=== PATIENT | male | born 1960 | race Caucasian/White ===

== ENCOUNTER 2016-12-07 22:07 | Emergency (ER) | payer BC, OTHER ==
[~2016-12-07] VITALS: Ht 170.2 cm; Wt 75.0 kg
[~2016-12-07 22:07] MED LIST: ALBE200T PO; AMIT8CAP6 PO; CHLO25 PO; FOLI1 PO; LISI-363 PO; OXYC10 PO; OXYC40 PO; THIA100T PO; [UNRECOGNIZED DRUG - CODE]
[2016-12-07 22:14] VITALS: BP 141/80; PULSE 93; RESP 16; TEMP 98.3; O2SAT 98
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
[2016-12-07] MEDS ORDERED: CHLO25CA2 PO (22:41)
[2016-12-07] MEDS ORDERED: LISI-515 PO (22:41)
[2016-12-07] MEDS ORDERED: THIAPOW36 (22:41)
[2016-12-07] MEDS ORDERED: AMIT8CAP6 PO (22:41)
[2016-12-07] MEDS ORDERED: FOLI1TAB4 PO (22:41)
[2016-12-07] MEDS ORDERED: ALBE200T PO (22:41)
[2016-12-07] MEDS ORDERED: OXYC-426 PO (22:41)
[2016-12-07] MEDS ORDERED: [UNRECOGNIZED DRUG - CODE] (22:41)
[2016-12-07 22:44] LABS: AUTOMATED NEUTROPHIL # 3.6 TH/MM3 (1.8-7.7); BASOPHIL % 0.5 % (0.0-2.0); EOSINOPHIL # 0.4 TH/MM3 (0-0.4); HEMATOCRIT 57.7 % (39.0-51.0); HEMO FLAGS DIFF FINAL; LYMPH % 25.4 % (9.0-44.0); LYMPHOCYTE # 1.6 TH/MM3 (1.0-4.8); MEAN CELL VOLUME 91.4 FL (80.0-100.0); MEAN CORPUSCULAR HEMOGLOBIN 31.3 PG (27.0-34.0); MEAN CORPUSCULAR HGB CONC 34.2 % (32.0-36.0); MONO % 10.7 % (0.0-8.0); NEUT % 56.4 % (16.0-70.0); PLATELET COUNT 255 TH/MM3 (150-450); RED BLOOD COUNT 6.31 MIL/MM3 (4.50-5.90); RED CELL DISTRIBUTION WIDTH 13.8 % (11.6-17.2); WHITE BLOOD COUNT 6.3 TH/MM3 (4.0-11.0)
[2016-12-07 22:55] LABS: AMPHETAMINE, URINE NEG (NEG); BARBITURATES, URINE NEG (NEG); COCAINE, URINE NEG (NEG)
[2016-12-07 23:02] LABS: ALT (GPT) 30 U/L (12-78); ANION GAP 9 MEQ/L (5-15); AST (GOT) 30 U/L (15-37); BICARBONATE 29.7 MEQ/L (21.0-32.0); BLOOD UREA NITROGEN 11 MG/DL (7-18); CHLORIDE 102 MEQ/L (98-107); GLOMERULAR FILTRATION RATE 61 ML/MIN (>89); POTASSIUM 4.1 MEQ/L (3.5-5.1); SODIUM (NA) 141 MEQ/L (136-145)
[2016-12-07 23:04] LABS: ALKALINE PHOSPHATASE 76 U/L (45-117); TOTAL BILIRUBIN ADULT 0.4 MG/DL (0.2-1.0)
[2016-12-08 04:00] VITALS: BP 143/83; PULSE 81; RESP 16; O2SAT 97
[2016-12-08] MEDS ORDERED: [UNRECOGNIZED DRUG - OTHER] PO (12:17)
== END 2016-12-08 15:13 ==
LOC: NEPA 22:07
DX: F32.9 Major depressive disorder, single episode, unspecified (principal); F10.14 Alcohol abuse with alcohol-induced mood disorder; J45.909 Unspecified asthma, uncomplicated
CPT/HCPCS: 80053; 80307; 80320; 85025; 99284

== ENCOUNTER 2017-08-07 15:56 | Emergency (ER) | payer BC, OTHER ==
[~2017-08-07] VITALS: Ht 182.9 cm; Wt 81.1 kg
[~2017-08-07 15:56] MED LIST changes: -CHLO25 PO; +CHLO25CA2 PO; -FOLI1 PO; +FOLI1TAB4 PO; -LISI-363 PO; +LISI-515 PO; +OXYC-426 PO; -OXYC10 PO; -OXYC40 PO; -THIA100T PO; +[UNRECOGNIZED DRUG - OTHER] PO
[2017-08-07 15:59] VITALS: BP 141/92; PULSE 89; RESP 18; TEMP 97.1; O2SAT 97
[2017-08-07] MEDS ORDERED: CLIN300C5 PO (17:53)
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
== END 2017-08-07 18:07 | disposition home or self-care (01) ==
LOC: PHED 15:56 → PHEFT 18:07
DX: L03.114 Cellulitis of left upper limb (principal)
CPT/HCPCS: 99283

== ENCOUNTER 2018-03-12 20:09 | Emergency (ER) | payer BC, OTHER ==
[~2018-03-12] VITALS: Ht 172.7 cm; Wt 75.0 kg
[~2018-03-12 20:09] MED LIST changes: -ALBE200T PO; -AMIT8CAP6 PO; -CHLO25CA2 PO; +CLIN300C5 PO; -FOLI1TAB4 PO; -LISI-515 PO; -OXYC-426 PO; -[UNRECOGNIZED DRUG - CODE]; -[UNRECOGNIZED DRUG - OTHER] PO
[2018-03-12 20:19] VITALS: BP 151/92; PULSE 77; RESP 16; TEMP 98.1; O2SAT 99
[2018-03-12] MEDS ORDERED: NAPROXEN 500 MG TAB PO ONE (20:30)
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
[2018-03-12] MEDS ORDERED: DICL75TA PO (21:45)
== END 2018-03-12 22:40 ==
LOC: NEPD 20:09
DX: T14.8XXA Other injury of unspecified body region, initial encounter (principal); M25.561 Pain in right knee; Y09 Assault by unspecified means
CPT/HCPCS: 70450; 73502; 73560; 73600; 99284

== ENCOUNTER 2018-03-30 15:35 | Emergency (ER) | payer BC, OTHER ==
[~2018-03-30] VITALS: Ht 182.9 cm; Wt 74.0 kg
[~2018-03-30 15:35] MED LIST changes: -CLIN300C5 PO; +DICL75TA PO
[2018-03-30] MEDS ORDERED: IOHEXOL 350 MG/ML 10 ML VIAL (for RAD DIAG) IVCONTRAST ONE (15:36)
[2018-03-30 15:59] VITALS: BP 144/79; PULSE 89; RESP 21; TEMP 97.6; O2SAT 98
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
[2018-03-30 16:43] LABS: AUTOMATED NEUTROPHIL # 9.8 TH/MM3 (1.8-7.7); BASOPHIL # 0.1 TH/MM3 (0-0.2); BASOPHIL % 0.6 % (0.0-2.0); EOSINOPHIL # 0.1 TH/MM3 (0-0.4); EOSINOPHIL % 1.2 % (0.0-4.0); HEMATOCRIT 51.7 % (39.0-51.0); HEMOGLOBIN 17.1 GM/DL (13.0-17.0); LYMPHOCYTE # 0.7 TH/MM3 (1.0-4.8); MEAN CELL VOLUME 95.7 FL (80.0-100.0); MEAN CORPUSCULAR HEMOGLOBIN 31.7 PG (27.0-34.0); MEAN CORPUSCULAR HGB CONC 33.1 % (32.0-36.0); MEAN PLATELET VOLUME 8.9 FL (7.0-11.0); MONO % 5.4 % (0.0-8.0); MONOCYTE # 0.6 TH/MM3 (0-0.9); NEUT % 86.8 % (16.0-70.0); PLATELET COUNT 334 TH/MM3 (150-450); RED CELL DISTRIBUTION WIDTH 14.3 % (11.6-17.2); WHITE BLOOD COUNT 11.3 TH/MM3 (4.0-11.0)
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
[2018-03-30 17:07] LABS: ALKALINE PHOSPHATASE 67 U/L (45-117); TOTAL BILIRUBIN ADULT 0.7 MG/DL (0.2-1.0); TOTAL PROTEIN 7.7 GM/DL (6.4-8.2)
[2018-03-30 17:09] LABS: ALBUMIN 3.9 GM/DL (3.4-5.0); ALT (GPT) 157 U/L (12-78); AST (GOT) 592 U/L (15-37); BLOOD UREA NITROGEN 20 MG/DL (7-18); CALCIUM 9.1 MG/DL (8.5-10.1); CHLORIDE 103 MEQ/L (98-107); CREATININE 1.01 MG/DL (0.60-1.30); GLOMERULAR FILTRATION RATE 76 ML/MIN (>89); GLUCOSE,RANDOM 83 MG/DL (74-106); SODIUM (NA) 137 MEQ/L (136-145)
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
[2018-03-30] MEDS ORDERED: IBUP-232 PO (17:58)
[2018-03-30] MEDS ORDERED: KETOROLAC TROMETHAMINE 30 MG/ML (IVP) VIAL IV PUSH ONE (18:00)
[2018-03-30] MEDS ORDERED: TETANUS/DIPHTHERIA TOXOID ADULT 0.5 ML VIAL IM ONE (18:00)
[2018-03-30 18:41] VITALS: BP 136/72
== END 2018-03-30 18:43 | disposition home or self-care (01) ==
LOC: NEPD 15:35
DX: S00.03XA Contusion of scalp, initial encounter (principal); S00.511A Abrasion of lip, initial encounter; M25.562 Pain in left knee; R10.9 Unspecified abdominal pain; R07.9 Chest pain, unspecified; M54.9 Dorsalgia, unspecified; M54.2 Cervicalgia; R68.84 Jaw pain; Z23 Encounter for immunization; X58.XXXA Exposure to other specified factors, initial encounter; Y93.19 Activity, other involving water and watercraft; R79.89 Other specified abnormal findings of blood chemistry; Z96.641 Presence of right artificial hip joint; Z87.09 Personal history of other diseases of the respiratory system; Z87.39 Personal history of other diseases of the musculoskeletal system and connective tissue
CPT/HCPCS: 70450; 70486; 71260; 72125; 72170; 73564; 74177; 80053; 80307; 85025; 96374; 99285; J1885; L0150; Q9967